=== PATIENT | female | born 1965 | race Caucasian/White ===

== ENCOUNTER 2020-09-10 16:27 | Outpatient (REF) | payer OTHER, SELFPAY ==
--- NOTE | 2020-09-10 16:31 | XR_ITS ---
EXAMINATION: XR FOOT, RIGHT CLINICAL INFORMATION: Pain in the toes COMPARISON: None TECHNIQUE: 3 views of the right foot. FINDINGS: No fracture. No dislocation. Joint spaces are normal. No focal bone lesion or abnormal periosteal reaction. No soft tissue abnormality XR/XR foot RT min 3V IMPRESSION: Normal right foot.
== END 2020-09-10 16:28 | disposition home or self-care (01) ==
LOC: HO.HMGCX 16:27
PROVIDERS: PCP Internal Medicine; Visit Provider Hospitalist
DX: M79.674 Pain in right toe(s) (principal)
CPT/HCPCS: 73630